=== PATIENT | female | born 1965 | race Caucasian/White ===

== ENCOUNTER 2017-08-03 22:25 | Inpatient (IN) | payer BC, SELFPAY ==
[2017-08-03 22:25] VITALS: BP 124/84; PULSE 118; RESP 14; TEMP 36.9; O2SAT 98; BMI 22.7
--- NOTE | 2017-08-03 23:09 | EKG12_ITS ---
Test Reason : ABD LABS Blood Pressure : / mmHG Vent. Rate : 102 BPM Atrial Rate : 102 BPM P-R Int : 130 ms QRS Dur : 086 ms QT Int : 378 ms P-R-T Axes : 063 046 061 degrees QTc Int : 492 ms Sinus tachycardia Otherwise normal ECG Confirmed by DHEERAJ HERNANDEZ ([id number]), image editor RAJEEV GIBSON ([id number] on 08/06/2017 2:29:38 PM Referred By: BARBARA Confirmed By:DHEERAJ HERNANDEZ
[2017-08-03 23:38] VITALS: BP 128/83; PULSE 101; RESP 19; O2SAT 95
[2017-08-04] VITALS (14 sets, daily range): BP systolic 96–138; BP diastolic 51–85; PULSE 57–101; RESP 16–18; TEMP 36.7–37; O2SAT 95–98; BMI 20.9; BMI 21.0
[2017-08-04 00:03] LABS: Anion Gap 9 (5-15); BUN 5 mg/dL (7-18); BUN/Creat Ratio 6.7 RATIO (10-20); Chloride 97 mmol/L (98-107); Creatinine, Serum 0.74 mg/dL (0.55-1.02); EST Glomerular Filtration Rate 88 mL/min (>60); Est Glom Filt Rate - Afr Amer 106 mL/min (>60); Estimated Creatinine Clearance 70.14 ml/min; Glucose 130 mg/dL (74-106); Potassium 2.5 mmol/L (3.5-5.1); Sodium Level 138 mmol/L (136-145)
[2017-08-04 00:05] LABS: Phosphorus 3.3 mg/dL (2.5-4.9)
--- NOTE | 2017-08-04 00:06 | ED.VISSUMM ---
- ER Visit Summary Date of Service: 08/04/17 Chief Complaint: Low calcium History of Present Illness: The patient is a 52 F had blood work as an outpatient performed on July 09, 2017 and her calcium was 7.1. Blood work was repeated today and calcium is 5.9. Today and albumin was obtained and is normal at 3.9 and total protein is 6.8. Patient complains of unusual sensation. She is status post thyroidectomy secondary to mass. She is on levothyroxine. She denies fever, chills night sweats. Denies weight gain or weight loss. She denies any ocular, visual or auditory symptoms. She denies palpitations or rapid heart rate. She denies shortness of breath, dyspnea on exertion, orthopnea or PND. She denies abdominal pain, nausea, vomiting or diarrhea. She denies dysuria, frequency, urgency or hematuria. She denies any myalgias or arthralgias. She does complain of vague weakness. She denies bruising easily. She denies urticaria or angioedema. Physical Examination: Vital signs are remarkable for a blood pressure 128/83, heart rate of 101. Head is atraumatic normocephalic. Pupils are equal round reactive. Extraocular muscles are intact. TMs are pearly white with landmarks noted. Nares patent with no drainage. Posterior pharynx without erythema or exudate. Uvula is midline. There is no dysphonia or dysphasia. Trachea is midline. There is no stridor with auscultation of the neck. Patient has bilateral Chvostek and positive Trousseau sign. Heart is regular without murmur, gallop or rub. S1 and S2 are normal. Lungs are clear to auscultation with good movement of air bilaterally. Patient is alert and oriented ?3. Motor is 5 over 5. Sensory is intact. DTRs are symmetric and 3+ with no clonus or Babinski sign. Cranial 2 through 12 are intact. Cerebellar testing is normal. Test Results: BMP and phosphorus level were obtained. Calcium is 6.0. Blood work that was performed at the [facility] today was faxed and not repeated Emergency Department Course and Treatment: Repeat calcium level to verify hypocalcemia. Added phosphorus level. Patient will receive 1 amp of calcium chloride over 15 minutes followed by an infusion of 1 g over 4-6 hours. Treatment Plan: Pulse has been paged for IV calcium therapy and continued in patient care Disposition: Metastases to PCU versus PCU stepdown will review mission criteria. Impression: 1. Symptomatic hypocalcemia 2. Hypothyroidism secondary to thyroidectomy 3. History of tobacco use This note was generated with [employer] dictation software. It may contain incorrect words, spelling, and punctuation that were not noted in review of the chart prior to signing ED Disposition - Plan for ED Patient: Chief Complaint: Abn Labs Referrals: Andrea Peraza III, MD [Primary Care Provider] -
--- NOTE | 2017-08-04 00:12 | ED.DCSUM_ITS ---
- ER Visit Summary Date of Service: 08/04/17 Chief Complaint: Low calcium History of Present Illness: The patient is a 52 F had blood work as an outpatient performed on July 09, 2017 and her calcium was 7.1. Blood work was repeated today and calcium is 5.9. Today and albumin was obtained and is normal at 3.9 and total protein is 6.8. Patient complains of unusual sensation. She is status post thyroidectomy secondary to mass. She is on levothyroxine. She denies fever, chills night sweats. Denies weight gain or weight loss. She denies any ocular, visual or auditory symptoms. She denies palpitations or rapid heart rate. She denies shortness of breath, dyspnea on exertion, orthopnea or PND. She denies abdominal pain, nausea, vomiting or diarrhea. She denies dysuria, frequency, urgency or hematuria. She denies any myalgias or arthralgias. She does complain of vague weakness. She denies bruising easily. She denies urticaria or angioedema. Physical Examination: Vital signs are remarkable for a blood pressure 128/83, heart rate of 101. Head is atraumatic normocephalic. Pupils are equal round reactive. Extraocular muscles are intact. TMs are pearly white with landmarks noted. Nares patent with no drainage. Posterior pharynx without erythema or exudate. Uvula is midline. There is no dysphonia or dysphasia. Trachea is midline. There is no stridor with auscultation of the neck. Patient has bilateral Chvostek and positive Trousseau sign. Heart is regular without murmur , gallop or rub. S1 and S2 are normal. Lungs are clear to auscultation with good movement of air bilaterally. Patient is alert and oriented ?3. Motor is 5 over 5. Sensory is intact. DTRs are symmetric and 3+ with no clonus or Babinski sign. Cranial 2 through 12 are intact. Cerebellar testing is normal. Test Results: BMP and phosphorus level were obtained. Calcium is 6.0. Blood work that was performed at the [facility] today was faxed and not repeated Emergency Department Course and Treatment: Repeat calcium level to verify hypocalcemia. Added phosphorus level. Patient will receive 1 amp of calcium chloride over 15 minutes followed by an infusion of 1 g over 4-6 hours. Treatment Plan: Pulse has been paged for IV calcium therapy and continued in patient care Disposition: Metastases to PCU versus PCU stepdown will review mission criteria. Impression: 1. Symptomatic hypocalcemia 2. Hypothyroidism secondary to thyroidectomy 3. History of tobacco use This note was generated with [employer] dictation software. It may contain incorrect words, spelling, and punctuation that were not noted in review of the chart prior to signing ED Disposition - Plan for ED Patient: Chief Complaint: Abn Labs Referrals: Andrea Peraza III, MD [Primary Care Provider] -
[2017-08-04] MEDS: Calcium Chloride 1 GM/10 ML Syringe IV (00:31)
--- NOTE | 2017-08-04 00:31 | PCM.HP.STD ---
Problem List (1) Smoker Status: Chronic (2) Hypocalcemia Status: Acute (3) Hypokalemia Status: Acute History of Present Illness Date of Admission: 08/04/17 Chief Complaint: abnormal labs, low potassium, low calcium The patient is a 52 year old female patient presents to the ER after having had abnormal laboratory results. Apparently, two weeks ago she had routine bloodwork and was found to have low calcium. She was told to repeat this lab today and her calcium was found to be very low so she was sent to the ER. Her calcium is 6.0 and her potassium is 2.5. She has a history of thyroid disease but has not had her PTH checked that I am aware of. The patient has positive Chvostek's sign and Trousseau's sign. She has received 50meq of KCl in the Ed and 2 grams of calcium chloride. She will be admitted for management of her electrolyte disturbance. Past Medical History Past Medical History (Chronic Problems): Chronic Problems Smoker (Chronic) Allergies aspirin Allergy (Verified 08/03/17 22:28) Swelling Penicillins Allergy (Verified 08/03/17 22:28) Hives Home Medications: Ambulatory Orders Medication Instructions Recorded Levothyroxine [Synthroid] 75 mcg PO DAILY 09/12/13 Dicyclomine HCl 1 tab PO TID PRN 08/03/17 Smoking Status: Current every day smoker - *Family History Maternal History Items: No pertinent history Review of Systems Constitutional: Reports: Weakness. Denies: Chills, Fever, Weight Change HEENT: Denies: Head Aches, Sinus Congestion, Sinus Drainage Cardiovascular: Denies: Chest Pain, Palpitations Respiratory: Denies: Cough, Shortness of breath at rest, Sputum production Gastrointestinal: Denies: Abdominal Pain, Nausea, Vomiting Genitourinary: Denies: Dysuria Musculoskeletal: Denies: Joint Pain, Joint Tenderness Skin: Denies: Rash, Wounds Neurological: Denies: Numbness, Tingling, Focal weakness Psychiatric: Denies: Anxiety, Depression, Homicidal Ideations, Suicidal Ideations Hematologic/ Lymphatic: Denies: Easy Bruising, Easy Bleeding VTE Information - Inpt Only VTE Present on Admission: No VTE Mechan Device Prophylaxis: None VTE Pharm Prophylaxis ordered?: Yes Patient Problems: Active and Suspected Problems Hypocalcemia (Acute) Hypokalemia (Acute) - Physical Exam General: Alert, Oriented x3, Cooperative HEENT: Atraumatic, Normocephalic Neck: Supple Lungs: Clear to auscultation, Normal air movement, No rhonchi, No wheeze, No rales Cardiovascular: Regular rate, Regular Rhythm, Normal S1, Normal S2, No murmurs Abdomen: Bowel Sounds Present, Soft, Non Tender Extremities: No edema Skin: No rashes Musculoskeletal: No Tenderness to Palpation of Joints or Extremities Neurological: Neuro grossly intact, - - Trousseau's sign positive, Chvostek sign positive Psych/Mental Status: Normal Affect, Appropriate Vital Signs Temp Pulse Resp BP Pulse Ox 98.4 F 101 H 19 H 128/83 H 95 08/03/17 22:25 08/03/17 23:38 08/03/17 23:38 08/03/17 23:38 08/03/17 23:38 Oxygen Delivery Method Room Air Weight: 108 lb 14.534 oz Body Mass Index (BMI) 22.7 Laboratory Tests Past 24 Hrs 08/03/17 08/03/17 08/04/17 23:25 23:25 00:13 Sodium 138 Potassium 2.5 L* Chloride 97 L Carbon Dioxide 32.0 Anion Gap 9 BUN 5 L Creatinine 0.74 Estim Creat Clear Calc 70.14 Est GFR (MDRD) Af Amer 106 Est GFR (MDRD) Non-Af 88 BUN/Creatinine Ratio 6.7 L Glucose 130 H Calcium 6.0 L* Phosphorus 3.3 Magnesium 2.0 Assessment/Plan Active and Suspected Problems Hypocalcemia (Acute) Hypokalemia (Acute) Plan - admit to progressive care unit - repeat CMP, mg, vit d level in am - PTH, free calcium level - IV d51/2 NS with 20meq Kcl at 75cc/hr - smoking cessation discussed (26 pack yr smoker consider low dose ct as outpatient) - LMWH for DVT prophylaxis - VIT d 43093 units x 1 after checking level Code Visit Inpatient E&M: 58639 Init Hosp L3
[2017-08-04] MEDS: Ondansetron 4 MG/2 ML Vial IV (00:53)
[2017-08-04] MEDS: Levothyroxine 75 MCG Tablet PO (05:28)
[2017-08-04 06:41] LABS: BUN 5 mg/dL (7-18); Creatinine, Serum 0.69 mg/dL (0.55-1.02); Estimated Creatinine Clearance 69.44 ml/min; Glucose 119 mg/dL (74-106)
[2017-08-04 06:42] LABS: ALB/GLOB Ratio 0.8 RATIO (0.9-2.4); AST(SGOT) 17 U/L (15-37); Alanine Aminotransfer ALT/SGPT 11 U/L (13-56); Albumin, Serum 3.1 g/dL (3.2-5.0); Alkaline Phosphatase 100 U/L (45-117); Anion Gap 6 (5-15); BUN/Creat Ratio 7.3 RATIO (10-20); Calcium,Total 8.5 mg/dL (8.5-10.1); Chloride 103 mmol/L (98-107); EST Glomerular Filtration Rate 96 mL/min (>60); Est Glom Filt Rate - Afr Amer 116 mL/min (>60); Globulin 4.1 g/dL (2.2-4.2); Magnesium 2.1 mg/dL (1.6-2.6); Potassium 3.6 mmol/L (3.5-5.1); Protein, Total 7.2 g/dL (6.4-8.2); Sodium Level 139 mmol/L (136-145)
[2017-08-04] MEDS: Enoxaparin 40 MG/0.4 ML Syringe SC (07:46)
--- NOTE | 2017-08-04 11:04 | CASEMGMT ---
Face to Face with patient for initial transition planning/care coordination assessment. RN RAE introduced self and role at [facility], pt voices understanding and consents to assessment at this time. Pt sitting up in bed in no distress at this time. Pt A/O x4 at this time and answers all questions appropriately at this time. Care providers, pharmacy, and demographics verified. See attached link. Pt voices no further concerns/needs at this time. Advised pt to ask for CM if any further questions/concerns/needs arise, voices understanding. CM to follow for any further discharge planning/needs. PLAN: [place] [facility]
--- NOTE | 2017-08-04 12:35 | PCM.PROGNOTE ---
<Kelsea Gunter - Last Filed: 08/04/17 12:46> Patient Problems: Active and Suspected Problems Hypocalcemia (Acute) Hypokalemia (Acute) Subjective: Patient seen and examined. States she had mild nausea last night. Denies recent illness. Denies current complaints. - Physical Exam General: Alert, Oriented x3, Cooperative, No apparent distress HEENT: Atraumatic, PERRLA, EOMI, Normocephalic Oral: Dry Mucosa Neck: Supple, No JVD, Negative Carotid Bruits Lungs: Clear to auscultation, Normal air movement Cardiovascular: Regular rate, Regular Rhythm, Normal S1, Normal S2, No murmurs Abdomen: Bowel Sounds Present, Soft, Non Tender, Non-Distended Extremities: No clubbing, No cyanosis, No edema, Capillary Refill Less than 3 Seconds Skin: No rashes, No breakdown Musculoskeletal: No Tenderness to Palpation of Joints or Extremities Neurological: Cranial nerves II-XII grossly intact, Neuro grossly intact Psych/Mental Status: Normal Affect, Appropriate Vital Signs Temp Pulse Resp BP Pulse Ox 98.3 F 72 18 96/51 L 95 08/04/17 07:43 08/04/17 11:09 08/04/17 07:43 08/04/17 07:43 08/04/17 07:43 Oxygen Delivery Method Room Air Weight: 45.6 kg Body Mass Index (BMI) 20.9 Intake and Output for Last 24 Hours 08/02/17 08/03/17 08/04/17 23:59 23:59 23:59 Intake Total 1413 / 1413 Balance 1413 / 1413 Laboratory Tests Past 24 Hrs 08/04/17 08/04/17 08/04/17 05:45 05:45 05:45 Sodium 139 Potassium 3.6 Chloride 103 Carbon Dioxide 30.0 Anion Gap 6 BUN 5 L Creatinine 0.69 Estim Creat Clear Calc 69.44 Est GFR (MDRD) Af Amer 116 Est GFR (MDRD) Non-Af 96 BUN/Creatinine Ratio 7.3 L Glucose 119 H Calcium 8.5 Ionized Calcium Magnesium 2.1 Total Bilirubin 0.50 AST 17 ALT 11 L Alkaline Phosphatase 100 Total Protein 7.2 Albumin 3.1 L Globulin 4.1 Albumin/Globulin Ratio 0.8 L Vitamin D 25-Hydroxy Pending PTH Intact Pending 08/04/17 05:45 Sodium Potassium Chloride Carbon Dioxide Anion Gap BUN Creatinine Estim Creat Clear Calc Est GFR (MDRD) Af Amer Est GFR (MDRD) Non-Af BUN/Creatinine Ratio Glucose Calcium Ionized Calcium Pending Magnesium Total Bilirubin AST ALT Alkaline Phosphatase Total Protein Albumin Globulin Albumin/Globulin Ratio Vitamin D 25-Hydroxy PTH Intact Medical Necessity - Tobacco Use Smoking Status: Current every day smoker Assessment/Plan Active and Suspected Problems Hypocalcemia (Acute) Hypokalemia (Acute) 1. Electrolyte disturbances-hypocalcemia, hypokalemia. Potassium 2.5 on admission, now 3.6. Calcium on admission 6.0, now 8.5. Continue IV fluids with potassium. Repeat labs in a.m. Possibly secondary to underlying parathyroid disease. Magnesium, phosphorus within normal limits. Vitamin D, PTH levels pending. Check TSH. 2. 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 Hyperplastic parathyroid gland. No evidence of malignancy. Patient denies issues since that time. Check TSH. Continue home Synthroid regimen. 3. Irritable bowel syndrome-continue home dicyclomine regimen. 4. Tobacco dependence-encourage smoking cessation. Patient denies need for nicotine replacement patch. DVT prophylaxis-Lovenox subcu. This patient was seen by ANGELA Allen under the supervision of Dr. Cowart. <Prince Cowart E - Last Filed: 08/04/17 13:42> - Physical Exam Vital Signs Temp Pulse Resp BP Pulse Ox 98.3 F 72 18 96/51 L 95 08/04/17 07:43 08/04/17 11:09 08/04/17 07:43 08/04/17 07:43 08/04/17 07:43 Oxygen Delivery Method Room Air Weight: 100 lb 8.493 oz Body Mass Index (BMI) 20.9 Intake and Output for Last 24 Hours 08/02/17 08/03/17 08/04/17 23:59 23:59 23:59 Intake Total 1413 / 1413 Balance 1413 / 1413 Laboratory Tests Past 24 Hrs 08/04/17 08/04/17 08/04/17 05:45 05:45 05:45 Sodium 139 Potassium 3.6 Chloride 103 Carbon Dioxide 30.0 Anion Gap 6 BUN 5 L Creatinine 0.69 Estim Creat Clear Calc 69.44 Est GFR (MDRD) Af Amer 116 Est GFR (MDRD) Non-Af 96 BUN/Creatinine Ratio 7.3 L Glucose 119 H Calcium 8.5 Ionized Calcium Magnesium 2.1 Total Bilirubin 0.50 AST 17 ALT 11 L Alkaline Phosphatase 100 Total Protein 7.2 Albumin 3.1 L Globulin 4.1 Albumin/Globulin Ratio 0.8 L Vitamin D 25-Hydroxy 7.4 L TSH PTH Intact Pending 08/04/17 08/04/17 05:45 05:45 Sodium Potassium Chloride Carbon Dioxide Anion Gap BUN Creatinine Estim Creat Clear Calc Est GFR (MDRD) Af Amer Est GFR (MDRD) Non-Af BUN/Creatinine Ratio Glucose Calcium Ionized Calcium Pending Magnesium Total Bilirubin AST ALT Alkaline Phosphatase Total Protein Albumin Globulin Albumin/Globulin Ratio Vitamin D 25-Hydroxy TSH Pending PTH Intact Assessment/Plan Hospitalist note: This patient was admitted because of abnormal labs, found to have severe hypokalemia and hypocalcemia without clear etiology. She had a history of thyroidectomy for Robert's thyroiditis back in 2013 and she has been on levothyroxine. Patient seen and examined. Today, she feels better. Her vital signs are stable. Physical examination essentially unremarkable. Been on potassium and calcium supplement. Her potassium and calcium are back to normal. On admission, corrected calcium for albumin was 6.7 mg/dL. His serum phosphorus and magnesium were normal. LFT was normal as well as alkaline phosphatase. Her vitamin D is very low at 7.4 which is consistent with vitamin D deficiency. She is on vitamin D supplement. Plan to continue potassium and calcium supplement, repeat CMP tomorrow morning, awaiting TSH and PTH. .
[2017-08-04 13:26] LABS: Vitamin D,25 Hydroxy 7.4 ng/mL (29.95-100.01)
[2017-08-04 13:45] LABS: Thyroid Stim Hormone (TSH) 2.97 uIU/mL (0.358-3.74)
[2017-08-04 13:53] LABS: Amylase 69 U/L (25-115); Lipase 373 U/L (73-393)
[2017-08-04 14:18] LABS: PTHIN 12.3 pg/mL (18.4-80.1)
[2017-08-05 01:15] VITALS: BP 103/54; PULSE 76; RESP 12; TEMP 36.9; O2SAT 95
[2017-08-05 03:05] VITALS: PULSE 70
[2017-08-05] MEDS: Levothyroxine 75 MCG Tablet PO (05:33)
[2017-08-05 06:19] VITALS: BP 112/70; PULSE 81; RESP 18; TEMP 36.9; O2SAT 95
[2017-08-05 06:51] LABS: Hematocrit 40.5 % (37-47); Hemoglobin 13.3 g/dl (12.0-15.0); Mean Corp Hgb Conc 32.8 g/gl (32-36); Mean Corpuscular Hgb 31.4 pg (27.0-32.0); Mean Corpuscular Volume 95.5 fL (81-99); Mean Platelet Vol. 10.7 fl (6.2-12.0); Platelet Count 260 K/mm3 (150-450); RBC Distribution Width CV 13.2 % (11.6-14.6); RBC Distribution Width SD 44.6 fl (35.1-43.9); Red Blood Count 4.24 M/mm3 (4.2-5.4); White Blood Count 7.5 K/mm3 (4.4-11.0)
[2017-08-05 06:53] VITALS: PULSE 73
[2017-08-05 06:55] LABS: Scan Indicated on CBC? Y/N NO
[2017-08-05 07:25] LABS: Anion Gap 8 (5-15); BUN 4 mg/dL (7-18); BUN/Creat Ratio 6.1 RATIO (10-20); Calcium,Total 6.8 mg/dL (8.5-10.1); Chloride 106 mmol/L (98-107); Creatinine, Serum 0.65 mg/dL (0.55-1.02); EST Glomerular Filtration Rate 102 mL/min (>60); Est Glom Filt Rate - Afr Amer 123 mL/min (>60); Estimated Creatinine Clearance 73.71 ml/min; Glucose 93 mg/dL (74-106); Sodium Level 142 mmol/L (136-145)
[2017-08-05] MEDS: Enoxaparin 40 MG/0.4 ML Syringe SC (09:55)
[2017-08-05 10:00] VITALS: BP 118/72; PULSE 81; RESP 16; TEMP 36.7; O2SAT 95
--- NOTE | 2017-08-05 11:01 | PCM.DC ---
- Discharge Diagnoses Current Active Problems: Current Active and Chronic Problems Smoker (Chronic) Hypocalcemia (Acute) Hypokalemia (Acute) You will use the following diet at home:: No restrictions Discharge Activity: Return to Normal Activity Call your doctor if you observe: Shortness of breath, Dizziness, Fainting spells, Chest pain Additional Instructions: You will need to complete repeat lab work on 08/10/2017 and follow-up with PCP in 1 week. He will take vitamin D supplement weekly for 8 weeks with further recommendation from your primary care physician. Continue potassium supplementation for 1 week. Calcium supplementation until further notified by primary care physician to discontinue. Allergies/Adverse Reactions: Allergies aspirin Allergy (Verified 08/03/17 22:28) Swelling Penicillins Allergy (Verified 08/03/17 22:28) Hives perfume Allergy (Verified 08/04/17 02:10) Shortness of breath Medications to take at Discharge Levothyroxine [Synthroid] 75 mcg PO DAILY 09/12/13 Dicyclomine HCl 1 tab PO TID PRN 08/03/17 Calcium Carbonate [Calcium] 500 mg PO BID #60 tab 08/05/17 Ergocalciferol [Vitamin D] 50,000 unit PO Q7D #8 cap 08/05/17 Potassium Chloride [K-Dur] 40 meq PO DAILY 7 Days #14 tab 08/05/17 The following prescriptions were given: Ergocalciferol [Vitamin D] 50,000 unit PO Q7D #8 cap Potassium Chloride [K-Dur] 40 meq PO DAILY 7 Days #14 tab Calcium Carbonate [Calcium] 500 mg PO BID #60 tab Orders to be completed after discharge: Basic Metabolic Profile (BMP) Time Frame: 08/10/17, Location: Laboratory Primary Care Physician: Andrea Peraza III, MD [Primary Care Provider] - Please follow up with your Primary Care Physician in: 1 Week Proposed Discharge Date: 08/05/17
--- NOTE | 2017-08-05 11:06 | PCM.DC.SUM ---
<Kelsea Gunter - Last Filed: 08/05/17 11:18> Discharge Date and Diagnosis Date of Admission: 08/04/17 Date of Discharge: 08/05/17 - Primary Discharge Diagnosis Active and Suspected Problems 1. Vitamin D deficiency with associated electrolyte disturbance including hypokalemia and hypocalcemia - Secondary Discharge Diagnosis Chronic Problems History of total thyroidectomy Irritable bowel syndrome Tobacco dependence Hospital Course and Treatment Operations: None Procedures: None Summary of Care Provided: Patient is a 52-year-old female admitted 08/04/2017 due to abnormal labs including low potassium and low calcium. She has a past medical history of tobacco dependence, irritable bowel syndrome, history of total thyroidectomy secondary to Robert's thyroiditis. 1. Vitamin D deficiency with associated electrolyte disturbances-hypocalcemia, hypokalemia. Magnesium and phosphorus within normal limits. Patient will be discharged on 50,000 units vitamin D weekly for 8 weeks with further recommendations as advised by primary care physician. She will continue potassium supplementation 40 mEq daily for 1 week. She will also be discharged on calcium supplementation 500 mg twice daily until further advised to discontinue per her primary care physician. She will repeat BMP 08/10/2017 with further follow-up with primary care physician in 1 week. PTH 12.3. Vitamin D level 7.4. Potassium and calcium levels improved at discharge. 2. 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 Hyperplastic parathyroid gland. No evidence of malignancy. Patient denies issues since that time. Continue home Synthroid regimen. TSH 2.9. 3. Irritable bowel syndrome-continue home dicyclomine regimen. 4. Tobacco dependence-encourage smoking cessation. Patient denies need for nicotine replacement patch. General: Alert, Oriented x3, Cooperative, No apparent distress HEENT: Atraumatic, PERRLA, EOMI, Normocephalic Oral: Dry Mucosa Neck: Supple, No JVD, Negative Carotid Bruits Lungs: Clear to auscultation, Normal air movement Cardiovascular: Regular rate, Regular Rhythm, Normal S1, Normal S2, No murmurs Abdomen: Bowel Sounds Present, Soft, Non Tender, Non-Distended Extremities: No clubbing, No cyanosis, No edema, Capillary Refill Less than 3 Seconds Skin: No rashes, No breakdown Musculoskeletal: No Tenderness to Palpation of Joints or Extremities Neurological: Cranial nerves II-XII grossly intact, Neuro grossly intact Psych/Mental Status: Normal Affect, Appropriate Patient seen and examined prior to discharge. Physical assessment as noted above. Patient stable for discharge home with recommendations as noted above. This patient was seen by ANGELA Allen under the supervision of Dr. Cowart. Discharge Diet: No Restrictions Discharge Activity: Return to Normal Activity Call your doctor if you observe: Shortness of breath, Dizziness, Fainting spells, Chest pain Home Medications: Medications to take at Discharge Levothyroxine [Synthroid] 75 mcg PO DAILY 09/12/13 Dicyclomine HCl 1 tab PO TID PRN 08/03/17 Calcium Carbonate [Calcium] 500 mg PO BID #60 tab 08/05/17 Ergocalciferol [Vitamin D] 50,000 unit PO Q7D #8 cap 08/05/17 Potassium Chloride [K-Dur] 40 meq PO DAILY 7 Days #14 tab 08/05/17 Following Prescrptions Were Given to Patient: Ergocalciferol [Vitamin D] 50,000 unit PO Q7D #8 cap Potassium Chloride [K-Dur] 40 meq PO DAILY 7 Days #14 tab Calcium Carbonate [Calcium] 500 mg PO BID #60 tab Primary Care Physician: Andrea Peraza III, MD [Primary Care Provider] - Please follow up with your Primary Care Physician in: 1 Week Disposition: Home Minutes spent on discharge:: 35 Patient Condition:: Stable Medical Necessity - Tobacco Use Smoking Status: Current every day smoker Meaningful Use Info Meaningful Use Diagnoses (Choose all that apply): None applicable <Prince Cowart E - Last Filed: 08/06/17 12:52> Discharge Date and Diagnosis - Secondary Discharge Diagnosis Chronic Problems Smoker (Chronic) Hospital Course and Treatment Summary of Care Provided: Hospitalist note: Discharge summary above reviewed and I agree with above discharge plan. Patient was admitted because of acute severe hypokalemia as well as symptomatic hypocalcemia. She was found to have severe vitamin D deficiency. Her calcium and potassium were replaced and corrected. Workup for hypocalcemia performed and revealed low PTH, very low vitamin D level, normal magnesium and normal kidney function. Based on our evaluation, this hypocalcemia is due to vitamin D deficiency. Patient was started on vitamin supplement 50,000 units q. weekly. Her potassium replaced and corrected. Her LFT and lipase were normal. TSH was normal. Patient symptoms improved and she did very well. Her vital signs remained stable. She was discharged on vitamin D 50,000 units q. weekly for 8 weeks and then plan to start her on maintenance vitamin D of 2000 units daily, discharged on potassium supplement 40 mEq of K Dur daily as well as calcium supplement 500 mg p.o. twice daily, order given to repeat BMP in 1 week and follow-up with PCP in 1 week. . Minutes spent on discharge:: 32 Code Visit Inpatient E&M: 92624 Disch Hosp
[2017-08-05 11:14] VITALS: PULSE 93
== END 2017-08-05 12:38 | disposition home or self-care (01) | DRG 641 ==
LOC: ED 23:52 → PCU 08-04 01:05
PROVIDERS: Nurse Practitioner Family; Admitting Provider Family Medicine; Emergency Provider Emergency Medicine; Family Provider Family Medicine; PCP Family Medicine; Visit Provider Hospitalist
DX: E55.9 Vitamin D deficiency, unspecified (principal); E87.6 Hypokalemia; E89.0 Postprocedural hypothyroidism; F17.210 Nicotine dependence, cigarettes, uncomplicated; K58.9 Irritable bowel syndrome, unspecified
CPT/HCPCS: 36415; 80048; 80053; 82150; 82306; 82330; 83690; 83735; 83970; 84100; 84443; 85027; 93005; 97802; 99283; 99406; J7030; A4216; J0610; J2405

== ENCOUNTER → 2020-12-28 | Outpatient (CLI) | payer BC, SELFPAY ==
--- NOTE | 2020-12-28 | AXNB_PTH ---
PATIENT: MARY ISABEL LOC: [facility] U#:[id number] AGE/SX: 55/F ROOM: RE12/28/[address]: Dr. Luke Peraza MD : 1965 BED: DIS: 12/28/2020 SPEC #: [id number] RECD: 12/28/20 15:49 STATUS: SCOTT REZuri #: [id number] CAT: 12/28/20 00:[address]: Luke Peraza DEPT: SURGICAL PATHOLOGY RECD BY: Marry Jorge ENTERED: 12/31/20 10:05 SP TYPE: AX NODE BX OTHR DR: Milind Montelongo, BLUEPRINTING AND PHOTOCOPY SUPERVISOR-C Tissues: A - Axillary lymph node, NOS B - Axillary lymph node, NOS Procedures: Surgery Specimen Level IV HEADER OPERATION: Ultrasound-guided needle core biopsy bilateral axillary lymph nodes PRE-OP DIAGNOSIS: Enlarged lymph nodes axilla TISSUE SUBMITTED: A ? Biopsy left axillary lymph node, B - Biopsy right axillary lymph node MICROSCOPIC DIAGNOSIS A. Left axillary lymph node, ultrasound-guided core biopsy: Benign lymph node tissue, negative for involvement by lymphoma or metastatic carcinoma. See comment. B. Right axillary lymph node, ultrasound-guided core biopsy: Benign lymph node tissue negative for involvement by lymphoma or metastatic carcinoma. See comment. SJ:rg 01/02/2021 COMMENT A & B. Immunohistochemistry ([id number]) supports the above diagnosis. If there is a high suspicion of lymphoma, excisional biopsy of lymph nodes is suggested, if clinically indicated. Case has been reviewed in consultation with Dr. Reina who concurs with the above diagnosis. IDC:AM MICROSCOPIC DESCRIPTION Slides are reviewed. GROSS DESCRIPTION A - Received in fixative is one container labeled with the patient's name and designated biopsy left axillary lymph node. The specimen consists of a core of holder tissue measuring 1 cm in length and 0.2 cm in diameter. The specimen is totally submitted in one cassette. B - Received in fixative is one container labeled with the patient's name and designated biopsy right axillary lymph node. The specimen consists of a core of holder tissue measuring 0.8 cm in length and 0.2 cm in diameter. The specimen is totally submitted in one cassette. / AM:justen 12/31/20 TC:5 CPT: 79612 x2
--- NOTE | 2020-12-28 | IMM_PTH ---
PATIENT: MARY ISABEL LOC: [facility] U#:[id number] AGE/SX: 55/F ROOM: RE12/28/[address]: Dr. Luke Peraza MD : 1965 BED: DIS: 12/28/2020 SPEC #: [id number] RECD: 01/01/21 11:52 STATUS: SCOTT REQ #: [id number] CAT: 12/28/20 00:[address]: Luke Peraza DEPT: IMMUNOHISTOCHEMISTRY RECD BY: Radha Cook ENTERED: 01/01/21 11:54 SP TYPE: IMMUNO OTHR DR: Milind Montelongo, PRIZER HAND-C Tissues: A - Axillary lymph node, NOS B - Axillary lymph node, NOS Procedures: BCL-2 (add) BCL-6 (add) CD10 (add) CD20 (add) CD3 (add) CD45 (add) CD5 (add) CD79A (add) CK8 (add) Pankeratin (initial) PHYSICIAN & [address] [address] SPECIMEN INFORMATION: Tissue Source: A ? Left axillary lymph node, B ? Right axillary lymph node Clinical Info: Enlarged axillary lymph nodes Specimen Number: [id number] A & B CPT code: 99790 x2, 29608 x18 METHODOLOGY: Deparaffinized sections of prefer/formalin-fixed tissue or PAP/DQ stained slides are incubated with monoclonal/polyclonal antibodies/oligonucleotide probes. Localization is made via biotin free immunoperoxidase method. Appropriate controls are performed and reacted as expected. Results on target cell population are indicated in the following table: RESULTS: ANTIBODY / CLONE RESULT Block A AE1-3 (AE1/AE3/PCK26) negative CK8 (39hwswJ17) negative CD3 (PS1) positive CD5 (SP10) positive CD45 (RP2/18) positive CD20 (L26) positive CD79a (11E3) positive BCL-2 (bcl-2/100/D5) negative in germinal center BCL-6 (YG744A/A8) positive in germinal center CD10 (56C6) positive in germinal center Block B AE1-3 (AE1/AE3/PCK26) negative CK8 (48ygzwG10) negative CD3 (PS1) positive CD5 (SP10) positive CD45 (RP2/18) positive CD20 (L26) positive CD79a (11E3) positive BCL-2 (bcl-2/100/D5) negative BCL-6 (BL126B/A8) positive in germinal center CD10 (56C6) positive in germinal center These tests were developed and their performance characteristics determined by [facility]. They may not have been cleared or approved by the [place]. Food and Drug Administration. The FDA has determined that such clearance or approval is not necessary. The above immunohistochemical/dualISH markers are ordered and reviewed by the Pathologist. INTERPRETATION: A. Left axillary lymph node, biopsy: Benign lymph node tissue, negative for involvement by lymphoma or metastatic carcinoma. B. Right axillary lymph node, biopsy: Benign lymph node tissue, negative for involvement by lymphoma or metastatic carcinoma. SJ:justen 01/02/2021 Case has been reviewed in consultation with Dr. Reina who concurs with the above diagnosis. IDC:AM
[2020-12-28 12:36] VITALS: BMI 24.0
== END | disposition home or self-care (01) ==
LOC: LABSPEC 16:05
PROVIDERS: PCP Nurse Practitioner Family; Referring Provider Surgery; Visit Provider Surgery
DX: R59.0 Localized enlarged lymph nodes (principal)
CPT/HCPCS: 88305; 88341; 88342

== ENCOUNTER → 2022-12-31 | Outpatient (CLI) | payer BC, SELFPAY ==
--- NOTE | 2022-12-31 15:17 | STRESSREP ---
Stress Test Report Treadmill stress test Indication; 57-year-old female with history of hypothyroidism, hyperlipidemia, and had acid reflux disease. Anxiety disorder. Underwent regular treadmill stress test for evaluation of CAD. Stress protocol: patient exercised according to standard Minh protocol. Reach stage III For 7-minute. Achieving a workload of maximum 10 METS The resting heart rate of 88 bpm, at maximal exercise patient achieved a heart rate of 164 bpm This value represents 100% of the maximal age-predicted heart rate. Resting blood pressure of 138/88 mmHg With a maximum blood pressure of 176/84 mmHg. The exercise stress test was stopped due to reaching her target heart rate. Patient experienced no symptoms of chest pain with maximal stress and in recovery However she had mild shortness of breath. Fatigue and shortness of breath. Resting EKG reveals normal sinus rhythm Following maximal stress and during recovery, mild ST depression upsloping, noted in the inferolateral lead Does not qualify for myocardial ischemia. No significant ventricular dysrhythmia, no PVCs Conclusion; negative treadmill stress test for myocardial ischemia Good exercise tolerance Normal blood pressure response to exercise Adolfo Murcia MD,FACC,[facility]
== END | disposition home or self-care (01) ==
PROVIDERS: PCP Nurse Practitioner Family; Referring Provider Family Medicine; Visit Provider Family Medicine
DX: R06.09 Other forms of dyspnea (principal)
CPT/HCPCS: 93017